=== PATIENT | male | born 1965 | race Caucasian/White ===

== ENCOUNTER 2017-05-16 17:00 | Inpatient (IN) | payer BC ==
[~2017-05-16] VITALS: Ht 162.6 cm; Wt 104.6 kg
--- NOTE | ~2017-05-16 | HP ---
[facility] AGE: 51 Y [address] ROOM: [place] [address] LOCATION: [facility] ADMIT DATE: 05/16/2017 History & Physical DISCHARGE DATE: FAMILY PHYSICIAN: PHYSICIAN, UNKNOWN ATTENDING PHYSICIAN: MARIELA HUBER DATE OF SERVICE: CHIEF COMPLAINT: Respiratory distress, airway obstruction. HISTORY OF PRESENT ILLNESS: This is a 51-year-old male, with recent routine tooth extraction, who presented to the emergency room at [facility] with complaints of increased swelling and difficulty breathing and swallowing due to worsening inflammation related to his recent tooth extraction. The patient had a tooth extraction done by Dr. Cotto about a week ago and had done well for the first couple of days and then started to progressively have worsening symptoms with this. The patient was promptly evaluated in the emergency room with the help of Dr. Cotto and transferred over here for observation and to watch his respiratory status in case the airway compromise becomes severe enough to require intubation. The patient during my evaluation is resting comfortably in bed, does not appear to be in respiratory distress. The patient does report significant pain with swallowing and discomfort around his neck. PAST MEDICAL HISTORY: 1. Coronary artery disease, status post CABG 11 years ago. 2. Strong family history of early heart disease. 3. prediabetes. 4. Morbid obesity. FAMILY HISTORY: Family history of early coronary artery disease including father who had a CABG at 42 years of age. PREVIOUS SOCIAL HISTORY: He has had a previous history of smoking, but does not smoke now. No history of alcohol or drug use. REVIEW OF SYSTEMS: All systems have been reviewed and were negative except as described in the HPI. PHYSICAL EXAMINATION: VITAL SIGNS: Blood pressure 165/99, heart rate 111, respiratory rate 17, and [facility] AGE: 51 Y [address] ROOM: [place] [address] LOCATION: [facility] ADMIT DATE: 05/16/2017 History & Physical DISCHARGE DATE: FAMILY PHYSICIAN: PHYSICIAN, UNKNOWN ATTENDING PHYSICIAN: MARIELA HUBER saturating 90% on room air. GENERAL: The patient is lethargic, sleepy, but awake, alert, and oriented x3. HEENT: Gross erythema surrounding tonsils. Moist mucous membranes. No scleral icterus or conjunctival pallor noted. Diffuse bilateral lymphadenopathy of submandibular lymph nodes. Head: Normocephalic and atraumatic. CHEST: Clear to auscultation bilaterally. HEART: Tachycardic. S1, S2. Regular rate and rhythm. ABDOMEN: Soft, nontender, nondistended. EXTREMITIES: Without edema. MUSCULOSKELETAL: No joint tenderness, effusion, or erythema noted. SKIN: Without rashes or lesions. NEUROLOGIC: Grossly nonfocal. ASSESSMENT AND PLAN: 1. Acute airway obstruction, related to swelling and mass effect around his posterior larynx from the swelling and inflammation. CT scan findings are suggestive of this as well. The patient is being closely followed up by Dr. Cotto as well as ENT. Plan is to continue Decadron and racemic epinephrine as needed as well as treat with IV clindamycin and monitor clinically. The patient has had a laryngoscope done today by ENT, and assessment appears to be okay for now and he will have a repeat exam in the morning as well. The patient is to have a close monitoring in the ICU overnight and we will have Anesthesiology come evaluate this in case he develops signs of respiratory collapse necessitating intubation. So far, he appears to be holding up okay. 2. Acute respiratory failure secondary to acute airway obstruction. 3. Coronary artery disease, status post coronary artery bypass graft 11 years ago. We will keep the n.p.o. for now and resume the medications once he is able to tolerate p.o. intake. 4. Prediabetes. 5. Morbid obesity. 6. DVT prophylaxis. We will ambulate the patient after observation overnight. MD BRANDEE BELL/yajaira /[id number] D: T: [id number] HISTORY & PHYSICAL
--- NOTE | ~2017-05-16 | DS ---
PATIENT'S NAME: DENNY [facility] AGE: 51 Y [address] ROOM: [id number] [place], [place] [id number] LOCATION: [facility]PCU ADMIT DATE: 05/16/2017 Discharge Summary DISCHARGE DATE: 05/24/2017 FAMILY PHYSICIAN: Jamal Galarza MD ATTENDING PHYSICIAN: Ramiro Pemberton FINAL DIAGNOSES: 1. Airway obstruction secondary to parapharyngeal abscess. 2. Acute respiratory failure. 3. Parapharyngeal abscess. 4. Coronary artery disease. 5. Glucose intolerance. 6. Morbid obesity. PROCEDURES: He had a direct laryngoscopy on May [address] Barber. He had an I and D of the abscess on May [address] Cotto and Dr. Barber. REASON FOR ADMISSION: Please see the dictated H and P by Dr. Pemberton but in short, the patient was found to have a tooth extraction. He was seen at the emergency room at [facility] and found to have increased swelling and difficulty breathing and swallowing due to inflammation. The patient was transferred here for close observation of his respiratory status because of the airway compromise. LABORATORY DATA: On May 17, white blood cell count 11, hemoglobin 14.3, hematocrit 42.5, and platelet count 139, at that time he had 15% bands. Most prior to discharge, white blood cell count was down to 8.7, hemoglobin 16, hematocrit 48. Culture data: Initial aspirate from the wound showed Eikenella corrodens, Haemophilus parainfluenzae, and Streptococcus mitis. Second set of cultures obtained from the surgical I and D showed a Streptococcus sanguinis, Haemophilus parainfluenzae, as well as Prevotella buccae, and Bacteroides pyogenes. RADIOLOGIC DATA: CT scan of the neck done on May 18 did show that there had been some drainage in the right parapharyngeal space abscess, but an abscess still remained. There was subcutaneous edema in the neck. HOSPITAL COURSE: The patient was accepted in transfer from [facility] because it was felt that the patient needed a higher level of care. The patient was admitted into the intensive care unit, started on IV Decadron, was given clindamycin and racemic epinephrine nebulized because of concern about airway impingement. He was seen by ENT and they felt that there was an abscess phlegmon present. The patient was given narcotic pain PATIENT'S NAME: DENNY JAVED [facility] AGE: 51 Y [address] ROOM: [id number] [place], [place] [address] LOCATION: [facility]PCU ADMIT DATE: 05/16/2017 Discharge Summary DISCHARGE DATE: 05/24/2017 FAMILY PHYSICIAN: Jamal Galarza MD ATTENDING PHYSICIAN: Ramiro Pemberton because of the concern about respiratory drive and airway. He was changed to routine Nucynta for pain and IV Dilaudid for severe breakthrough pain. His blood pressures were elevated and he had a history of coronary artery disease. His beta-ashanti was made IV. He was put on sliding scale insulin for the glucose intolerance caused by the Decadron. He was followed closely by Ear, Nose, and Throat as well as Dr. Cotto. There was concern about his airway. A repeat CT scan was done on the and the decision was made for the patient to have a surgical I and D on May 19. Please see the operative note by Dr. Cotto and Dr. Barber. The cultures were taken. Based upon the results of the initial studies, some of the antibiotics were adjusted. He was put on vancomycin and IV Invanz. He did have improvement. The swelling did improve and the patient was able to be moved out of the intensive care unit. He was increased on the Cozaar and given IV hydralazine. He continued to receive IV antibiotics and was improving. We did review his culture data and the decision was made to use Levaquin and Flagyl. The drain was removed on May 23 and it was felt that he was stable for discharge on May 24. DISCHARGE INSTRUCTIONS: Follow up with Dr. Cotto on May 28. DISCHARGE MEDICATIONS: 1. Aspirin 81 mg daily. 2. Zetia 10 mg daily. 3. Fenofibrate 145 mg daily. 4. Metoprolol-XL 50 mg daily. 5. Protonix 40 mg daily. 6. Levaquin 750 mg daily. 7. Crestor 40 mg daily. 8. Cinnamon 500 mg daily. 9. [place] fish oil 1000 mg daily. 10. Nucynta 50 mg every 4 hours as needed for pain. He was sent with a script for 30. 11. L-lysine 500 mg daily. It was discussed with the patient to eat yogurt for C. diff prophylaxis and use an [id number] probiotic. The patient did voice understanding. The patient was also given a note that he could return to work on June 03. LUDMILA BARRAZA MD LAW/modl PATIENT'S NAME: DENNY JAVED [facility] AGE: 51 Y [address] ROOM: [place] [address] [facility] ADMIT DATE: 05/16/2017 Discharge Summary DISCHARGE DATE: 05/24/2017 FAMILY PHYSICIAN: Jamal Galarza MD ATTENDING PHYSICIAN: Ramiro Pemberton /[id number] CC: MD Rio Motta MD Martin G Tilley, MD/DDS d: 05/25/17 1121 t: 05/27/17 1426, DISCHARGE SUMMARY
--- NOTE | ~2017-05-16 | CON ---
PATIENT'S NAME: DENNY JAVED [facility] AGE: 51 Y [address] ROOM: [address] [address] LOCATION: GICU ADMIT DATE: 05/16/2017 Consultation DISCHARGE DATE: FAMILY PHYSICIAN: PHYSICIAN, UNKNOWN ATTENDING PHYSICIAN: MARIELA HUBER DATE OF CONSULTATION: 05/16/2017 HISTORY OF PRESENT ILLNESS: The patient is a 51-year-old gentleman, status post was then teeth removal x4 per Dr. Micah Cotto, on 05/13/2017. The patient subsequently developed progressive dysphagia and shortness of breath. He was presented to the [facility] Emergency Room, at which time, a CT scan of the neck was performed, which revealed significant parapharyngeal edema and swelling, extending from the nasopharynx down to the level of the cords. The patient was in mild respiratory distress, no O2 desaturation. CBC was performed, which was normal. The patient had no hemoptysis. He did have difficulty with dysphagia and difficulty handling secretions. He denied any associated nasal congestion or obstruction. Does have some associated trismus. He has been afebrile. Upon presentation to [facility], he was noted to have a normal white count, was again afebrile. Subsequently, due to inability to evaluate the patient's airway secondary to lack of instrumentation at [facility], it was recommended that he would be transferred to [facility] for admission and further evaluation. PAST MEDICAL HISTORY: Please see admission H and P. SOCIAL HISTORY: Please see admission H and P. FAMILY HISTORY: Please see admission H and P. PHYSICAL EXAMINATION: GENERAL: Well-developed, well-nourished gentleman, moderately obese, in no acute respiratory distress. The patient has O2 on per nasal cannula. HEENT: Eyes: EOMI, PERRL. Conjunctivae are clear. Ears: External canal is normal. TMs are clear. Nose: The patient has significant nasal septal deviation, right and left respectively. Oropharynx/Oral Cavity: The patient has trismus. He has significant right peritonsillar swelling, mild associated inflammation. NECK: No lymphadenopathy or masses. Trachea is midline. Thyroid has no palpable abnormality. PATIENT'S NAME: DENNY JAVED [facility] AGE: 51 Y [address] ROOM: [id number] [place], [place] [address] LOCATION: GICU ADMIT DATE: 05/16/2017 Consultation DISCHARGE DATE: FAMILY PHYSICIAN: PHYSICIAN, UNKNOWN ATTENDING PHYSICIAN: MARIELA HUBER PROCEDURE NOTE: Flexible fiberoptic laryngoscopy was performed after institution of 1:1 Afrin and lidocaine solution. The scope was placed in the right nasal vestibule and advanced. Nasopharynx visualized and noted be clear. The scope was advanced down the level of the base of tongue, the base of tongue was normal. The patient had deviation of his epiglottis to the left. He had significant swelling, left lateral pharyngeal wall; edematous area, epiglottic fold with partial supraglottic obstruction. He had normal true vocal cord mobility and adequate airway with insufflation. No associated erythema. No ecchymosis. ASSESSMENT: Left parapharyngeal phlegmon versus hematoma. RECOMMENDATIONS: Expectant observation. IV antibiotics, steroids, and inhalant treatment with close followup. Humidify an O2 per face tent. MD ANNY ARTEAGA/rudil /[id number] d: 05/17/17 0032 t: 05/28/17 0806, CONSULTATION REPORT
[2017-05-17 05:33] LABS: HEMATOCRIT 42.5 % (37.0-53.0); HEMOGLOBIN 14.3 g/dL (12.0-17.0); MCH 29.1 pg (27.0-34.0); MCHC 33.6 gm/dL (32.0-36.5); MCV 86.6 fl (83.0-98.0); MPV 11.9 fl (9.4-12.4); PLATELET COUNT 139 K/uL (150-450); RBC 4.91 M/uL (4.00-6.00); RDW-CV 15.9 % (11.9-14.6)
[2017-05-17 06:14] LABS: ABSOLUTE NEUTROPHIL CT (ANC) 9.9 K/uL (1.4-9.0); BANDED NEUTROPHIL # 1.7 K/uL (0.0-0.1); BANDED NEUTROPHILS % 15 %; LYMPHOCYTE # 0.7 K/uL (0.8-4.0); LYMPHOCYTE % 6 %; MONOCYTE # 0.4 K/uL (0.0-1.0); SEGMENTED NEUTROPHIL # 8.3 K/uL (1.4-9.0); SEGMENTED NEUTROPHIL % 75 %
[2017-05-17] MEDS ORDERED: ZETIA10 MG PO (11:10)
[2017-05-17] MEDS ORDERED: COZAAR25 MG PO (11:11)
[2017-05-17] MEDS ORDERED: TRICOR145 MG PO (11:11)
[2017-05-17] MEDS ORDERED: TOPROL XL 5050 MG PO (11:12)
[2017-05-17] MEDS ORDERED: ASPIRIN (CHILDR81 MG PO (11:13)
[2017-05-17] MEDS ORDERED: CRESTOR40 MG PO (11:13)
[2017-05-17] MEDS ORDERED: PROTONIX40 MG PO (11:13)
[2017-05-17] MEDS ORDERED: L-LYSINE500 MG PO (11:14)
[2017-05-17] MEDS ORDERED: CINNAMON500 MG PO (11:14)
[2017-05-17] MEDS ORDERED: FISH OIL 1,0001 EACH PO (11:14)
[2017-05-18 05:03] LABS: HEMOGLOBIN 14.8 g/dL (12.0-17.0); MCH 28.8 pg (27.0-34.0); MCHC 33.6 gm/dL (32.0-36.5); MCV 85.8 fl (83.0-98.0); MPV 12.3 fl (9.4-12.4); PLATELET COUNT 162 K/uL (150-450); RBC 5.13 M/uL (4.00-6.00); RDW-CV 16.1 % (11.9-14.6); WBC 11.6 K/uL (4.0-11.0)
[2017-05-18 05:24] LABS: CREATININE 1.1 mg/dL (0.6-1.3)
[2017-05-18 06:43] LABS: ABSOLUTE NEUTROPHIL CT (ANC) 10.2 K/uL (1.4-9.0); BANDED NEUTROPHIL # 0.6 K/uL (0.0-0.1); BANDED NEUTROPHILS % 5 %; LYMPHOCYTE # 0.7 K/uL (0.8-4.0); LYMPHOCYTE % 6 %; MONOCYTE # 0.7 K/uL (0.0-1.0); SEGMENTED NEUTROPHIL # 9.6 K/uL (1.4-9.0); SEGMENTED NEUTROPHIL % 83 %
[2017-05-21 05:55] LABS: BASOPHIL % 0.3 %; EOSINOPHIL # 0.1 K/uL (0.0-0.5); EOSINOPHIL % 1.4 %; HEMATOCRIT 48.6 % (37.0-53.0); IMMATURE GRANULOCYTE # 0.2 K/uL (0.0-0.3); IMMATURE GRANULOCYTE % 2.2 %; LYMPHOCYTE # 1.4 K/uL (0.8-4.0); LYMPHOCYTE % 16.2 %; MCH 28.3 pg (27.0-34.0); MCHC 32.9 gm/dL (32.0-36.5); MONOCYTE # 0.7 K/uL (0.0-1.0); MONOCYTE % 8.5 %; MPV 12.2 fl (9.4-12.4); NEUTROPHIL # (ANC) 6.2 K/uL (1.4-9.0); NEUTROPHIL % 71.4 %; NRBC % 0.3 /100WBC (0-0.00); PLATELET COUNT 158 K/uL (150-450); RBC 5.65 M/uL (4.00-6.00); RDW-CV 17.6 % (11.9-14.6); WBC 8.7 K/uL (4.0-11.0)
[2017-05-21 06:10] LABS: CREATININE 0.9 mg/dL (0.6-1.3)
[2017-05-24] MEDS ORDERED: LEVAQUIN 750 M750 MG PO (10:40)
[2017-05-24] MEDS ORDERED: FLAGYL500 MG PO (10:42)
[2017-05-24] MEDS ORDERED: NUCYNTA50 MG PO (10:46)
== END 2017-05-24 11:15 | disposition disaster alternative care site (69) | DRG 137 ==
LOC: GPCU 17:00 → GICU 17:00 → GPCU 05-21 19:23
PROVIDERS: Internal Medicine; Otolaryngology; ADMIT Internal Medicine
PROC: 0W930ZZ Drainage of Oral Cavity and Throat, Open Approach (ICD-10-PCS; principal; 2017-05-19)
DX: J39.0 Retropharyngeal and parapharyngeal abscess (principal); J96.00 Acute respiratory failure, unspecified whether with hypoxia or hypercapnia; Z68.41 Body mass index [BMI] 40.0-44.9, adult; J98.8 Other specified respiratory disorders; I25.10 Atherosclerotic heart disease of native coronary artery without angina pectoris; E66.01 Morbid (severe) obesity due to excess calories; R73.03 Prediabetes
CPT/HCPCS: C1751; J1100; J1170; J1335; J1644; J1885; J1956; J2270; J3370; J7030; J7040; J7050; J7120; Q9967

== ENCOUNTER → 2017-05-16 | Outpatient (CLI) | payer BC ==
[~2017-05-16] MED LIST: ASPIRIN (CHILDR81 MG PO; CINNAMON500 MG PO; COZAAR25 MG PO; CRESTOR40 MG PO; FISH OIL 1,0001 EACH PO; FLAGYL500 MG PO; L-LYSINE500 MG PO; LEVAQUIN 750 M750 MG PO; NUCYNTA50 MG PO; PROTONIX40 MG PO; TOPROL XL 5050 MG PO; TRICOR145 MG PO; ZETIA10 MG PO
== END | disposition disaster alternative care site (69) ==
LOC: GAMB 16:35
DX: R13.10 Dysphagia, unspecified (principal); J98.8 Other specified respiratory disorders; I10 Essential (primary) hypertension; E78.5 Hyperlipidemia, unspecified; M26.69 Other specified disorders of temporomandibular joint; K08.89 Other specified disorders of teeth and supporting structures; Z88.0 Allergy status to penicillin; Z48.814 Encounter for surgical aftercare following surgery on the teeth or oral cavity; Z79.82 Long term (current) use of aspirin; Z79.891 Long term (current) use of opiate analgesic; Z79.899 Other long term (current) drug therapy
CPT/HCPCS: A0422; A0425; A0428; Q9967